=== PATIENT | female | born 1990 ===

== ENCOUNTER 2025-08-29 21:07 | Outpatient (REF) | payer BC, SELFPAY ==
[2025-08-31 14:32] LABS: Bacterial Vaginosis (BV) Positive (Negative); Candida glabrata Negative (Negative); Candida species group Negative (Negative); Chlamydia Result Negative (Negative); GC Result Negative (Negative)
== END 2025-08-29 21:08 | disposition home or self-care (01) ==
LOC: NCHCN 21:07
PROVIDERS: Visit Provider Family Medicine
DX: Z11.3 Encounter for screening for infections with a predominantly sexual mode of transmission (principal)
CPT/HCPCS: 81513; 87481; 87491; 87591; 87661; 87480; 87510; 87660